=== PATIENT | male | born 1950 | race Caucasian/White ===

== ENCOUNTER 2016-07-18 17:25 | Emergency (ER) | payer OTHER, MEDICARE ==
[2016-07-18 17:44] VITALS: BP 150/95
[2016-07-18] MEDS ORDERED: TETANUS/DIPHTHERIA TOX-ADULT 0.5 ML SYR (>=7YO) IM ONE (17:46)
--- NOTE | 2016-07-18 17:50 | ER Document Report ---
ED Medical Screen (RME) - General Stated Complaint: FINGER LACERATION Notes: States he was using jesus today which dropped down and cut the the tip off left ring finger. Bone is exposed. States his last tetanus was about 10 years ago. I have greeted and performed a rapid initial assessment of this patient. A comprehensive ED assessment and evaluation of the patient, analysis of test results and completion of the medical decision making process will be conducted by additional ED providers. - Related Data Allergies/Adverse Reactions: No Known Allergies Allergy (Unverified 07/18/16 17:48) Physical Exam - Vital signs Vitals: Temp Pulse Resp BP Pulse Ox 97.5 F 86 18 150/95 H 93 07/18/16 17:42 07/18/16 17:42 07/18/16 17:42 07/18/16 17:42 07/18/16 17:42 - Notes Notes: Pad of left ring finger avulsed, bone exposed. Course - Vital Signs Vital signs: Temp Pulse Resp BP Pulse Ox 97.5 F 86 18 150/95 H 93 07/18/16 17:42 07/18/16 17:42 07/18/16 17:42 07/18/16 17:42 07/18/16 17:42
[2016-07-18] MEDS ORDERED: HYDROCODONE/ACETAMINOPHEN 5-325 MG 6 TAB/DSPK PO PRN (19:04)
[2016-07-18] MEDS ORDERED: CEPHALEXIN 500 MG CAPSULE PO ONE (19:04)
--- NOTE | 2016-07-18 19:07 | ER Document Report ---
ED Hand/Wrist Injury - General Chief Complaint: Finger Injury Stated Complaint: FINGER LACERATION Time seen by provider: 19:05 Mode of Arrival: Ambulatory Information source: Patient TRAVEL OUTSIDE OF THE [place] IN LAST 30 DAYS: No - HPI Patient complains to provider of: partial traumatic fingertip amputation Injury to: Ring finger Onset: Just prior to arrival Where: Outdoors Timing: Still present Quality of pain: Achy Severity: Moderate Pain Level: 4 Context: Laceration Notes: Patient is a 66-year-old male presenting to the emergency room complaining of partial fingertip amputation that occurred just prior to arrival, patient reports he was trimming trees, when left fourth fingertip was accidentally caught in the tremors, causing a partial amputation covering the palmar surface of his finger distally, he denies any other injury or trauma, last tetanus shot is unknown - Related Data Allergies/Adverse Reactions: No Known Allergies Allergy (Unverified 07/18/16 17:48) Past Medical History - General Information source: Patient - Social History Smoking Status: Never Smoker Chew tobacco use (# tins/day): No Frequency of alcohol use: None Drug Abuse: None Family History: Reviewed & Not Pertinent Patient has suicidal ideation: No Patient has homicidal ideation: No Renal/ Medical History: Denies: Hx Peritoneal Dialysis Review of Systems - Review of Systems Constitutional: No symptoms reported EENT: No symptoms reported Cardiovascular: No symptoms reported Respiratory: No symptoms reported Gastrointestinal: No symptoms reported Genitourinary: No symptoms reported Male Genitourinary: No symptoms reported Musculoskeletal: No symptoms reported Skin: See HPI Hematologic/Lymphatic: No symptoms reported Neurological/Psychological: No symptoms reported -: Yes All other systems reviewed and negative Physical Exam - Vital signs Vitals: Temp Pulse Resp BP Pulse Ox 97.5 F 86 18 150/95 H 93 07/18/16 17:42 07/18/16 17:42 07/18/16 17:42 07/18/16 17:42 07/18/16 17:42 Interpretation: Normal - Notes Notes: - General General appearance: Appears well, Alert In distress: None - HEENT Head: Normocephalic, Atraumatic Eyes: Normal Conjunctiva: Normal Extraocular movements intact: Yes Eyelashes: Normal Pupils: PERRL - Respiratory Respiratory status: No respiratory distress - Cardiovascular Rhythm: Regular - Abdominal Inspection: Normal - Back Back: Normal - Extremities General upper extremity: Left hand, fourth finger with partial fingertip amputation, on the palmar surface, no nailbed involvement, small portion of bone is exposed, active bleeding General lower extremity: Normal inspection - Neurological Neuro grossly intact: Yes Orientation: AAOx4 Madonna Coma Scale Eye Opening: Spontaneous [place] Coma Scale Verbal: Oriented [place] Coma Scale Motor: Obeys Commands Madonna Coma Scale Total: 15 - Psychological Associated symptoms: Normal affect, Normal mood - Skin Skin Temperature: Warm Skin Moisture: Dry Skin Color: Normal Course - Re-evaluation Re-evalutation: 07/19/16 01:22 A Gelfoam dressing was placed over the distal portion of fingertip, and a bulky Kerlix dressing was placed over that, patient was started on antibiotics and provided with pain medication, advised to return to the emergency room in 24 hours for a dressing change and wound check, and then follow-up with a primary care provider and orthopedic surgeon in 2-3 days, otherwise return to the emergency room immediately if symptoms worsen, patient and at bedside acknowledge understanding and agreement with this plan - Vital Signs Vital signs: Temp Pulse Resp BP Pulse Ox 97.5 F 86 18 150/95 H 93 07/18/16 17:42 07/18/16 17:42 07/18/16 17:42 07/18/16 17:42 07/18/16 17:42 - Diagnostic Test Radiology reviewed: Image reviewed, Reports reviewed Discharge - Discharge Clinical Impression: Traumatic amputation of fingertip Qualifiers: Encounter type: initial encounter Qualified Code(s): S68.129A - Partial traumatic metacarpophalangeal amputation of unspecified finger, initial encounter Condition: Stable Disposition: HOME, SELF-CARE Instructions: Laceration Care ([facility]), Non-Sutured Laceration ([facility]) Additional Instructions: Return to the ER in 24 hours for wound check and dressing change. Follow-up with a hand surgeon in 2-3 days. Return to the emergency room immediately if symptoms worsen or any additional concerns. If you notice any bleeding apply direct pressure with a bulky dressing. Prescriptions: Cephalexin Monohydrate [Keflex 500 mg Capsule] 500 mg PO BID #20 capsule Referrals: BENITO ERVIN MD [ACTIVE STAFF] - Follow up as needed
== END 2016-07-18 19:55 | disposition home or self-care (01) ==
LOC: ER 17:25
DX: S68.625A Partial traumatic transphalangeal amputation of left ring finger, initial encounter (principal); W27.8XXA Contact with other nonpowered hand tool, initial encounter; Y93.H9 Activity, other involving exterior property and land maintenance, building and construction; Y92.009 Unspecified place in unspecified non-institutional (private) residence as the place of occurrence of the external cause
CPT/HCPCS: 90471; 90714; 99283

== ENCOUNTER 2016-12-02 05:59 | Day surgery (SDC) | payer MEDICARE, OTHER ==
--- NOTE | 2016-11-25 09:27 | RADIOLOGY REPORT (SQ) ---
EXAM DESCRIPTION: CHEST PA/LATERAL COMPLETED DATE/TIME: 11/25/2016 9:17 am REASON FOR STUDY: PRE OP COMPARISON: None. EXAM PARAMETERS: NUMBER OF VIEWS: two views TECHNIQUE: Digital Frontal and Lateral radiographic views of the chest acquired. RADIATION DOSE: NA LIMITATIONS: none FINDINGS: LUNGS AND PLEURA: No opacities, masses or pneumothorax. No pleural effusion. MEDIASTINUM AND HILAR STRUCTURES: No masses or contour abnormalities. HEART AND VASCULAR STRUCTURES: Heart normal size. No evidence for failure. BONES: No acute findings. HARDWARE: None in the chest. OTHER: No other significant finding. IMPRESSION: NO SIGNIFICANT RADIOGRAPHIC FINDING IN THE CHEST. TECHNICAL DOCUMENTATION: JOB ID: [id number] [employer]- All Rights Reserved
[2016-11-25 09:36] LABS: ABSOLUTE BASOPHILS # (AUTO) 0.1 10^3/uL (0.0-0.2); ABSOLUTE EOSINOPHILS # (AUTO) 0.2 10^3/uL (0.0-0.6); ABSOLUTE LYMPHOCYTES (AUTO) 1.6 10^3/uL (0.5-4.7); ABSOLUTE MONOCYTES (AUTO) 0.5 10^3/uL (0.1-1.4); BASOPHILS % (AUTO) 0.9 % (0-2); EOSINOPHILS % (AUTO) 3.7 % (0-6); HEMATOCRIT 45.8 % (37.9-51.0); HEMOGLOBIN 15.7 g/dL (13.5-17.0); HGB HCT DIFFERENCE 1.3; LYMPHOCYTES % (AUTO) 24.3 % (13-45); MEAN CORPUSCULAR HEMOGLOBIN 33.5 pg (27.0-33.4); MEAN CORPUSCULAR HGB CONC 34.3 g/dL (32.0-36.0); MEAN CORPUSCULAR VOLUME 98 fl (80-97); MONOCYTES % (AUTO) 8.4 % (3-13); RED CELL DISTRIBUTION WIDTH 13.4 % (11.5-14.0); SEGMENTED NEUTROPHILS % (AUTO) 62.7 % (42-78); WHITE BLOOD COUNT 6.4 10^3/uL (4.0-10.5)
[2016-11-25 09:38] LABS: APPEARANCE,URINE CLEAR; BILIRUBIN,URINE NEGATIVE (NEGATIVE); GLUCOSE, URINE NEGATIVE (NEGATIVE); KETONES,URINE NEGATIVE (NEGATIVE); LEUKOCYTE ESTERASE,URINE NEGATIVE (NEGATIVE); NITRITE,URINE NEGATIVE (NEGATIVE); PROTEIN,URINE NEGATIVE (NEGATIVE); URINE SPECIFIC GRAVITY 1.013; UROBILINOGEN,URINE NEGATIVE mg/dL (<2.0)
[2016-11-25 09:57] LABS: ANION GAP 13 (5-19); BLOOD UREA NITROGEN 20 mg/dL (7-20); CALCIUM 9.6 mg/dL (8.4-10.2); CARBON DIOXIDE 21 mmol/L (22-30); CHLORIDE 110 mmol/L (98-107); CREATININE RESULT 1.04 mg/dL (0.52-1.25); GLUCOSE 102 mg/dL (75-110); POTASSIUM 4.5 mmol/L (3.6-5.0); SODIUM 143.8 mmol/L (137-145)
--- NOTE | 2016-11-25 12:52 | EKG REPORT ---
SEVERITY:- NORMAL ECG - SINUS RHYTHM : Confirmed by: Padmini Boyd MD 25-Nov-2016 12:51:46
[~2016-12-02 05:59] MED LIST: CEFAZOLIN SODIUM 2 GM in DEXTROSE 5%-WATER 100 ML IV PRN; LACTATED RINGERS 1000 ML IV PRN; LIDOCAINE 0.5% INJ-PF (5 MG/ML) 50 ML SDV SUBCUT PRN; RINGERS SOLUTION,LACTATED 500 ML IV PRN
[2016-12-02] MEDS ORDERED: EPINEPHRINE INJ 30 MG/30 ML VIAL ONE (06:52)
[2016-12-02] MEDS ORDERED: BUPIVACAINE HCL 0.5 % INJ/PF 30 ML SDV ONE (06:52)
[2016-12-02] MEDS ORDERED: MIDAZOLAM 2 MG/2 ML INJ ONE (07:44)
[2016-12-02] MEDS ORDERED: FENTANYL CITRATE INJ/PF 250 MCG/5 ML AMPULE ONE (07:45)
[2016-12-02] MEDS ORDERED: ACETAMINOPHEN 100 ML IV ONE (07:45)
[2016-12-02] MEDS ORDERED: PROPOFOL INJ 200 MG/20 ML VIAL IV ONE (07:45)
[2016-12-02] MEDS ORDERED: MORPHINE SULFATE 10 MG/ML INJ ONE (07:46)
[2016-12-02] MEDS ORDERED: EPHEDRINE SULFATE INJ 50 MG/1 ML AMPULE ONE (07:47)
[2016-12-02] MEDS ORDERED: DIPHENHYDRAMINE HCL 50 MG/ML VIAL IV PRN (09:05)
[2016-12-02] MEDS ORDERED: FENTANYL CITRATE INJ/PF 100 MCG/2 ML AMPUL IV PRN ×3 (09:05)
[2016-12-02] MEDS ORDERED: MEPERIDINE HCL/PF INJ 25 MG/1 ML DISP.SYRIN IV PRN (09:05)
[2016-12-02] MEDS ORDERED: OXYCODONE-ACETAMINOPHEN 5-325 MG TABLET PO PRN ×3 (09:05→10:16)
[2016-12-02] MEDS ORDERED: MORPHINE SULFATE 10 MG/ML INJ IV PRN (09:05)
[2016-12-02] MEDS ORDERED: PROMETHAZINE HCL INJ 25 MG/1 ML VIAL IV PRN ×2 (09:05)
[2016-12-02] MEDS ORDERED: ONDANSETRON HCL INJ/PF 4 MG/2 ML SDV IV PRN (10:16)
[2016-12-02] MEDS ORDERED: HYDROMORPHONE HCL INJ/PF 2 MG/ML AMPULE IV PRN (10:16)
--- NOTE | 2016-12-02 10:16 | PDOC DISCHARGE SUMMARY ---
Discharge Summary (SDC) - Discharge Final Diagnosis: Left Shoulder Rotator Cuff Tear, Proximal Biceps Tendon Tear, Subacromial Impingement Date of Surgery: 12/02/16 Discharge Date: 12/02/16 Condition: Good Treatment or Instructions: Schedule Follow Up w/ Dr. Sukumar Parish @ [facility] to be seen in 10-14 days or as scheduled [place]: [place]: [place]: May remove dressing on postop day #3, keep incision covered and dry. Ice left shoulder May begin elbow, wrist and hand ROM Pendulum Exercises Stool softener of choice when on pain medication. Prescriptions: Oxycodone HCl/Acetaminophen [Percocet 5-325 mg Tablet] 1 - 2 tab PO ASDIR PRN # 50 tablet PRN Reason: Discharge Diet: As Tolerated Respiratory Treatments at Home: Deep Breathing/Coughing Discharge Activity: No Lifting Over 10 Pounds, No Lifting/Push/Pulling Report the Following to Your Physician Immediately: Fever over 101 Degrees, Unusual Bleeding, Redness, Swelling, Warmth, Increased Soreness
[2016-12-02] MEDS ORDERED: KETOROLAC TROMETHAMINE INJ/PF 30 MG/1 ML SDV IV PRN (10:17)
--- NOTE | 2016-12-02 10:33 | Operative Report ---
Operative Report DATE OF SURGERY: 12/02/16 PREOPERATIVE DIAGNOSIS: Left Shoulder Rotator Cuff Tear POSTOPERATIVE DIAGNOSIS: Left Shoulder Rotator Cuff Tear, Proximal Biceps Tendon Tear, Subacromial Impingement OPERATION: 1. Left Shoulder Arthroscopy w/ Rotator Cuff Repair. 2. Acromioplasty, SAD. 3. Open Sup Pectoralis Biceps Tenodesis SURGEON: KALYANI PFEIFFER ANESTHESIA: GA COMPLICATIONS: None ESTIMATED BLOOD LOSS: Minimal PROCEDURE: Indication for above procedure: 66-year-old male with left shoulder pain. Patient has a history of previous right rotator cuff tear requiring operative intervention. We attempted conservative measures including injections and physical therapy without resolution of patient's symptoms. MRI was then obtained which demonstrated possible full-thickness rotator cuff tear patient failed conservative management at that point we discussed treatment options including operative versus nonoperative intervention. Risks and benefits were explained patient verbalized understanding consented for the procedure. Procedure In Detail: Patient was seen and evaluated in the preoperative holding area. The LEFT upper extremity was initialized and marked. Patient received 2g of Ancef IV for bacterial prophylaxis. Patient was taken back to the operative room where transferred to the operative table and placed under general anesthesia. Once they were adequately anesthetized placed in the beachchair position nonoperative right upper extremity and bilateral lower extremities were carefully padded and cervical spine placed in a neutral position. A surgical team debriefing was performed ensuring all instrumentation was available, the surgical procedure was discussed with possible concerns reviewed. The upper extremity was prepped with ChloraPrep and draped in a sterile fashion. A timeout was done identifying correct patient, procedure and extremity everyone in attendance agree with this and verbalized no concerns. The posterior portal was established. Arthroscope introduced into the glenohumeral joint. I then triangulated and established an anterior portal and a cannula was placed. Diagnostic arthroscopy demonstrated some mild fraying of the anterior labrum when I retracted the biceps tendon into the joint there was significant tearing of the proximal biceps. The undersurface of the rotator cuff was then identified the was tearing from the greater tuberosity involving approximately central third at the interval between the supraspinatus and infraspinatus of approximately 60%. This area was then marked with a PDS suture. No significant degenerative changes of the glenohumeral joint were appreciated. Because of the proximal biceps tendon tear and biceps tenotomy was performed later to be converted to a biceps tenodesis. There was essentially moderate synovitis and a partial synovectomy was performed. Once complete I turned my attention to the subacromial space. The arthroscope was introduced into the subacromial space and lateral portal was established. Through the lateral portal a subacromial bursectomy was performed the coracoacromial ligament was carefully elevated but not excised identifying a acromial spur. The acromial plasty was performed excising the acromial spur to a flat surface. The previously marked spot at my rotator cuff did demonstrate significant thinning of the rotator cuff from the subacromial space this area was carefully debrided which left a small crescent- shaped tear approximately 8 mm x 10 mm. The greater tuberosity was debrided to prepare for rotator cuff repair. A stab incision was made and the awl was introduced and a medial row anchor was preloaded with fiber tape and placed into the tuberosity. The fiber tape suture was shuttled out the lateral portal and the inverted mattress suture with placed getting sufficient rotator cuff tissue anterior and posterior. I then started the fiber tape suture into a second swivel lock anchor and this was placed to lateral. Rotator cuff was tensioned through the lateral row to allow excellent footprint coverage. Once complete there is no remaining defect of the rotator cuff and good fixation of the rotator cuff was established. With shoulder range of motion the rotator cuff moved as a unit and the remaining defect was appreciated. I then turned my attention to subpectoralis biceps tenodesis. Longitudinal skin incision was made along the inferior third of the pectoralis major. Blunt dissection was performed identifying the inferior border of the pectoralis major. Any peripheral vasculature was carefully coagulated. I then identified the tenotomized long head of the biceps which was retrieved and brought out the wound. The tendon was then secured 2 centimeters distal to the musculotendinous junction with a #2 fiber loop and the remaining diseased portion of the biceps was excised. The Arthrex biceps tenodesis button was then secured to my biceps tendon. Under direct visualization I then cleared an area along the anterior aspect of the humerus and drilled unicortically. The button was then placed into the unicortical hole and the biceps tendon was shuttled to the anterior cortex of the humerus. I then checked stability of the button confirming maximal fixation. Utilizing the free needle one limb of the remaining FiberWire was secured to the biceps providing further fixation. The elbow was then placed through range of motion to ensure appropriate tension of the biceps with flexion and extension. The wound was then copiously irrigated with normal saline. Any peripheral vasculature was carefully coagulated with Bovie cautery. Skin was closed a running subcuticular 3-0 Monocryl suture reinforced with Dermabond and Steri-Strips. The portal holes were closed with interrupted 3-0 nylon suture. 0.5% Marcaine without epinephrine was injected for postoperative pain control. Sponge counts, instrument counts, needle counts counts were correct. Patient was then awoken from anesthesia. Transferred from the operating room table to the operating room stretcher. There was no intraoperative complications patient tolerated procedure well stable to PACU. Preoperative plan: Patient will begin physical therapy 4 weeks postoperatively as per aggressive rotator cuff protocol.
[2016-12-02 12:17] VITALS: BP 169/101
[2016-12-02] MEDS ORDERED: GLYCOPYRROLATE INJ 0.4 MG/2 ML VIAL ONE (14:24)
[2016-12-02] MEDS ORDERED: LIDOCAINE 2% INJ-PF (20 MG/ML) 10 ML AMPUL ONE (14:24)
[2016-12-02] MEDS ORDERED: SUCCINYLCHOLINE CHLORIDE INJ 200 MG/10 ML VIAL ONE (14:24)
[2016-12-02] MEDS ORDERED: ROCURONIUM BROMIDE INJ 50 MG/5 ML VIAL IV ONE (14:24)
[2016-12-02] MEDS ORDERED: ONDANSETRON HCL INJ/PF 4 MG/2 ML SDV ONE (14:24)
[2016-12-02] MEDS ORDERED: NEOSTIGMINE METHYLSULFATE 10 MG/10 ML VIAL ONE (14:24)
[2016-12-02] MEDS ORDERED: KETOROLAC TROMETHAMINE 60 MG/2 ML SDV ONE (14:24)
== END 2016-12-02 12:25 | disposition home or self-care (01) ==
LOC: OROUT 05:59
PROVIDERS: ATTEND Orthopaedic Surgery
PROC: 0RNK4ZZ Release Left Shoulder Joint, Percutaneous Endoscopic Approach (ICD-10-PCS; 2016-12-02)
PROC: 0LM40ZZ Reattachment of Left Upper Arm Tendon, Open Approach (ICD-10-PCS; 2016-12-02)
PROC: 0LM24ZZ Reattachment of Left Shoulder Tendon, Percutaneous Endoscopic Approach (ICD-10-PCS; principal; 2016-12-02 08:00)
DX: S43.432D Superior glenoid labrum lesion of left shoulder, subsequent encounter (principal); X58.XXXD Exposure to other specified factors, subsequent encounter; M75.102 Unspecified rotator cuff tear or rupture of left shoulder, not specified as traumatic; I10 Essential (primary) hypertension; Z79.899 Other long term (current) drug therapy
CPT/HCPCS: 93005; 36415; 85025; 80048; 81001; 71020; 93010; 29827; 29826; 24340; C1713 ×2; J2250; J0690; J3490 ×3; J0171; J1885; J3010; J2270; A9270; J0330; J2405; J2704; J0131; 1630